=== PATIENT | male | born 2000 | race Two or more races ===

== ENCOUNTER 2024-12-11 12:40 | Emergency (ER) | payer BC ==
[~2024-12-11] VITALS: Ht 152.4 cm; Wt 68.0 kg
[2024-12-11 12:51] VITALS: TEMP 98.4
[2024-12-11] MEDS ORDERED: METOCLOPRAMIDE HCL 10 MG/2 ML VIAL ONE (13:06)
[2024-12-11] MEDS ORDERED: METO-295 PO (13:14)
[2024-12-11] MEDS: METOCLOPRAMIDE HCL 10 MG/2 ML VIAL IV ONE (13:19)
[2024-12-11] MEDS: IV NS 0.9% 1,000 ML BAG IV ONE (13:19)
[2024-12-11 13:28] LABS: CALCIUM, SERUM 8.8 mg/dL (8.5-10.1); CREATININE 1.3 mg/dL (0.6-1.3); SODIUM SERUM 142.0 mmol/L (136-145); UREA NITROGEN, BLOOD 13.0 mg/dL (7-18)
[2024-12-11 14:25] VITALS: BP 120/81; O2SAT 99
== END 2024-12-11 14:26 | disposition home or self-care (01) ==
LOC: ER 12:49
DX: F12.929 Cannabis use, unspecified with intoxication, unspecified (principal); F31.9 Bipolar disorder, unspecified; Z88.8 Allergy status to other drugs, medicaments and biological substances
CPT/HCPCS: 99284; 96374; 96361; 93005; 80048; 36415; J2765; J7030

== ENCOUNTER 2025-02-24 14:37 | Emergency (ER) | payer BC ==
[~2025-02-24] VITALS: Ht 154.9 cm; Wt 68.9 kg
[~2025-02-24 14:37] MED LIST: METO-295 PO
[2025-02-24 15:23] LABS: APPEARANCE,URINE CLEAR (CLEAR); BLOOD, URINE NEGATIVE Ery/uL (NEGATIVE); LEUKOCYTE ESTERASE ,URINE NEGATIVE (NEGATIVE); NITRITE, URINE NEGATIVE (NEGATIVE); UGLUCOSE NEGATIVE (NEGATIVE)
[2025-02-24 15:36] LABS: AMPHETAMINE, URINE NEGATIVE (NEGATIVE); BARBITURATE, URINE NEGATIVE (NEGATIVE); BENZODIAZEPINE, URINE NEGATIVE (NEGATIVE); CANNABINOID, URINE NEGATIVE (NEGATIVE); COCCAINE, URINE NEGATIVE (NEGATIVE); OPIATE, URINE NEGATIVE (NEGATIVE)
[2025-02-24 15:37] LABS: ADD URINE CULTURE YES
[2025-02-24 15:38] LABS: SQUAMOUS EPITHELIAL CELL,UR Few /HPF (None Seen)
[2025-02-24 16:01] LABS: PLATELET COUNT (AUTO) 253 K/uL (150-450); RED BLOOD CELL COUNT(AUTO) 5.33 MIL/uL (4.5-6.0); RED CELL DISTRIBUTION WIDTH 14.8 % (11.5-15.0); WHITE BLOOD COUNT (AUTO) 7.5 K/uL (4.3-11.0)
[2025-02-24 16:11] LABS: CALCIUM, SERUM 9.5 mg/dL (8.5-10.1); CREATININE 0.9 mg/dL (0.6-1.3); SODIUM SERUM 145 mmol/L (136-145); UREA NITROGEN, BLOOD 18 mg/dL (7-18)
[2025-02-24 16:13] LABS: ASPARTATE AMINOTRANSFERASE 21 U/L (15-37); TOTAL PROTEIN, SERUM 7.6 g/dL (6.4-8.2)
[2025-02-24] MEDS: LORAZEPAM 1 MG TABLET PO ONE (18:01)
[2025-02-24 20:00] VITALS: BP 129/81; TEMP 98.4; O2SAT 97
== END 2025-02-25 01:57 ==
LOC: ER 14:44
DX: R45.851 Suicidal ideations (principal); F31.9 Bipolar disorder, unspecified; J45.909 Unspecified asthma, uncomplicated; K21.9 Gastro-esophageal reflux disease without esophagitis; R10.20 Pelvic and perineal pain unspecified side; Z88.8 Allergy status to other drugs, medicaments and biological substances; Z79.899 Other long term (current) drug therapy
CPT/HCPCS: 36415; 80048-TC; 80076-TC; 81001; 85025-TC; 87086-TC; 98960